=== PATIENT | female | born 1950 | race Caucasian/White ===

== ENCOUNTER → 2016-08-19 | Outpatient (CLI) | payer OTHER | END | disposition home or self-care (01) | LOC: C.LABMFLN 11:35 | PROVIDERS: ATTEND Physician Assistant | DX: J02.9 Acute pharyngitis, unspecified (principal) ==

== ENCOUNTER → 2016-12-18 | Outpatient (CLI) | payer OTHER ==
[2016-12-18 13:35] LABS: BASO % 0.5 %; BASO ABS # 0.03 K/uL (0-0.2); COMPLETE YES; EOS % 1.6 %; IG% 0.2 %; LYMPH % 42.5 %; LYMPH ABS # 2.46 K/uL (1.2-3.4); MEAN CELL VOLUME 90.7 fL (80-100); MEAN CORPUSCULAR HEMOGLOBIN 29.5 pg (25-34); MEAN CORPUSCULAR HGB CONC 32.6 g/dl (32-36); MEAN PLATELET VOLUME 11.3 fL (7.4-10.4); MONO % 5.4 %; NEUT % 49.8 %; PLATELET COUNT 212 K/uL (130-400); WHITE BLOOD COUNT 5.79 K/uL (4.8-10.8)
[2016-12-18 13:46] LABS: ALT/SGPT 38 U/L (12-78); AST/SGOT 22 U/L (15-37); BLOOD UREA NITROGEN 13 mg/dl (7-18); BUN/CREATININE RATIO 20.5 (10-20); CALCIUM 8.4 mg/dl (8.5-10.1); CARBON DIOXIDE 28 mmol/L (21-32); CHLORIDE 107 mmol/L (98-107); CHOLESTEROL 183 mg/dl (0-200); CHOLESTEROL/HDL RATIO 2.9; CREATININE 0.64 mg/dl (0.60-1.20); GLUCOSE 96 mg/dl (70-99); HDL CHOLESTEROL 63 mg/dl; SODIUM 142 mmol/L (136-145)
[2016-12-18 13:55] LABS: LDL CHOLESTEROL CALCULATED 102 mg/dl; TRIGLYCERIDES 92 mg/dl (0-150); VERY LOW DENSITY LIPOPROT CALC 18 mg/dl
== END | disposition home or self-care (01) ==
LOC: C.LABMFLN 10:25
PROVIDERS: ATTEND Family Medicine
DX: E03.9 Hypothyroidism, unspecified (principal); E78.00 Pure hypercholesterolemia, unspecified; R53.83 Other fatigue; I48.91 Unspecified atrial fibrillation